=== PATIENT | female | born 1970 | race Two or more races ===

== ENCOUNTER 2021-01-31 00:19 | Outpatient (CLI) | payer OTHER | END 2021-01-31 00:20 | disposition home or self-care (01) | LOC: PPH VACUNA 00:19 | DX: Z23 Encounter for immunization (principal) ==

== ENCOUNTER 2021-08-15 15:30 | Outpatient (CLI) | payer OTHER | END 2021-08-15 15:45 | disposition home or self-care (01) | LOC: PPH VACUNA 15:30 | PROVIDERS: ATTEND Emergency Medicine Pediatric Emergency Medicine | DX: Z23 Encounter for immunization (principal) ==